=== PATIENT | male | born 1980 | race Caucasian/White ===

== ENCOUNTER 2020-01-01 13:57 | Emergency (ER) | payer MEDICARE ==
[2020-01-01 15:27] LABS: ALT (SGPT) 17 U/L (8-55); AST (SGOT) 17 U/L (5-34); Alkaline Phosphatase 117 U/L (40-110); Anion Gap 11 mmol/L (10-20); BUN (Urea Nitrogen) 13 mg/dL (8.9-20.6); Bilirubin, Total 0.3 mg/dL (0.2-1.2); Calc. Creatinine Clearance 0 mL/min (70-130); Calcium 8.6 mg/dL (7.8-10.44); Carbon Dioxide 25 mmol/L (22-29); Chloride 106 mmol/L (98-107); Estimated GFR-MDRD Greater than 90; Globulin 2.8 g/dL (2.4-3.5); Glucose 87 mg/dL (70-105); Potassium 4.2 mmol/L (3.5-5.1); Protein, Total 6.8 g/dL (6.0-8.3); Sodium 138 mmol/L (136-145)
--- NOTE | 2020-01-01 15:28 | RAD ---
Exam:Left foot 3 views HISTORY: Third and fourth digit infection. Pain. COMPARISON: None FINDINGS: Limited evaluation the second through fourth digit due to persistent flexion. There does ap pear to be diffuse bone demineralization throughout the left foot with more focally mineralization involving the distal aspect of the proximal phalanx of the second digit. Possibility of erosive milian es and demineralization involving the middle and distal phalanx of the fourth digit and fifth digit cannot be excluded. There are mild degenerative changes in the first metatarsal phalangeal joint space Lisfranc alignment is maintained. No fracture. IMPRESSION: Areas of demineralization and possible erosion involving the second, fourth and fifth dig it. Possibility of osteomyelitis cannot be excluded. Consider MRI.
[2020-01-01 15:45] LABS: #Eosinphils 0.1 thou/uL (0.0-0.7); #Lymphocytes 1.8 thou/uL (1.20-3.40); #Monocytes 0.6 thou/uL (0.11-0.59); #Neutrophils 5.8 thou/uL (1.40-6.50); %Basophils 0.1 % (0.0-1.0); %Eosinophils 1.2 % (0.0-10.0); %Lymphocytes 21.9 % (21.0-51.0); %Monocytes 7.2 % (0.0-10.0); %Neutrophils 69.6 % (42.0-75.0); Hemoglobin 15.1 g/dL (14.0-18.0); Mean Corpuscular HGB CONC 33.5 g/dL (32.0-36.0); Mean Corpuscular Hemoglobin 30.6 pg (27.0-31.0); Mean Corpuscular Volume 91.1 fL (78.0-98.0); Mean Platelet Volume 7.9 fL (7.4-10.4); Platelet Count 222 thou/uL (130-400); RBC Distribution Width 12.1 % (11.5-14.5); Red Blood Cell (RBC) Count 4.94 mill/uL (4.70-6.10); White Blood Cell (WBC) Count 8.3 thou/uL (4.8-10.8)
== END 2020-01-01 16:20 | disposition home or self-care (01) ==
LOC: ERS 13:57
DX: L97.529 Non-pressure chronic ulcer of other part of left foot with unspecified severity (principal); I10 Essential (primary) hypertension; Z79.899 Other long term (current) drug therapy
CPT/HCPCS: 36415; 80053; 83605; 85025; 85652; 86140

== ENCOUNTER 2020-03-04 14:40 | Emergency (ER) | payer MEDICARE ==
--- NOTE | 2020-03-04 15:43 | RAD ---
LEFT FOOT 3 VIEWS: HISTORY: Infection. COMPARISON: Foot radiograph 01/01/2020. FINDINGS: Hyperflexion of distal interphalangeal joints of the toes. No acute fracture or malalignment. No er osions or periostitis. IMPRESSION: No acute osseous abnormality. No definite evidence of osteomyelitis. MRI recommended if clinically warranted. POS: [facility]
[2020-03-04 16:20] LABS: #Eosinphils 0.1 thou/uL (0.0-0.7); #Lymphocytes 1.6 thou/uL (1.20-3.40); #Monocytes 0.6 thou/uL (0.11-0.59); #Neutrophils 7.5 thou/uL (1.40-6.50); %Basophils 0.2 % (0.0-1.0); %Eosinophils 0.8 % (0.0-10.0); %Lymphocytes 16.4 % (21.0-51.0); %Monocytes 6.5 % (0.0-10.0); %Neutrophils 76.1 % (42.0-75.0); Hemoglobin 14.7 g/dL (14.0-18.0); Mean Corpuscular HGB CONC 34.6 g/dL (32.0-36.0); Mean Corpuscular Hemoglobin 31.1 pg (27.0-31.0); Mean Corpuscular Volume 89.8 fL (78.0-98.0); Mean Platelet Volume 7.1 fL (7.4-10.4); Platelet Count 206 thou/uL (130-400); RBC Distribution Width 11.8 % (11.5-14.5); Red Blood Cell (RBC) Count 4.74 mill/uL (4.70-6.10); White Blood Cell (WBC) Count 9.9 thou/uL (4.8-10.8)
[2020-03-04 16:33] LABS: Bilirubin Negative (Negative); Blood, Urine 1+ (Negative); Clarity Clear (Clear); Glucose, Urine (Dipstick) Normal (Negative); Ketone, Urine Negative (Negative); Leukocyte 500 Leu/uL (Negative); Mucous/LPF 1+ LPF (<2+); Nitrite Negative (Negative); Protein, Urine (Dipstick) 100 mg/dL (Neg-Trace); RBC/HPF 21-50 HPF (0-3); Specific Gravity, Urine 1.025 (1.002-1.036); Squamous Epithelial 0-3 HPF (0-3); Urobilinogen Normal mg/dL (Less than 2)
[2020-03-04 16:48] LABS: Bacteria/HPF Rare-Few HPF (None Seen)
[2020-03-04 16:49] LABS: Sperm/HPF Rare HPF (None Seen)
[2020-03-04 16:53] LABS: ALT (SGPT) 14 U/L (8-55); AST (SGOT) 11 U/L (5-34); Albumin 3.9 g/dL (3.5-5.0); Alkaline Phosphatase 129 U/L (40-110); Anion Gap 13 mmol/L (10-20); BUN (Urea Nitrogen) 9 mg/dL (8.9-20.6); Bilirubin, Total 0.3 mg/dL (0.2-1.2); Calc. Creatinine Clearance 0 mL/min (70-130); Calcium 8.4 mg/dL (7.8-10.44); Carbon Dioxide 26 mmol/L (22-29); Chloride 105 mmol/L (98-107); Globulin 2.8 g/dL (2.4-3.5); Glucose 82 mg/dL (70-105); Potassium 3.9 mmol/L (3.5-5.1); Protein, Total 6.7 g/dL (6.0-8.3); Sodium 140 mmol/L (136-145)
== END 2020-03-04 17:26 | disposition home or self-care (01) ==
LOC: ERS 14:40
DX: N39.0 Urinary tract infection, site not specified (principal); L03.032 Cellulitis of left toe; L97.529 Non-pressure chronic ulcer of other part of left foot with unspecified severity; I10 Essential (primary) hypertension; E78.5 Hyperlipidemia, unspecified; Z79.899 Other long term (current) drug therapy
CPT/HCPCS: 36415; 80053; 81001; 81015; 83605; 85025; 85652; 86140; 87040; 87077; 87086

== ENCOUNTER 2020-03-14 14:28 | Emergency (ER) | payer MEDICARE ==
--- NOTE | 2020-03-14 15:02 | RAD ---
EXAM: XR Toe(s) Lt Min 2 View DATE: 03/14/2020 2:45 PM INDICATION: Left third toe wound COMPARISON: Left foot 3 views dated March 04, 2020 FINDING: The toes are held in flexion and slightly limiting image detail. There is diffuse osteopeni a. There is a superficial ulceration along the dorsal aspect of the suspected left third digit. No gross destructive osteolysis is evident to suggest osteomyelitis. There is diffuse soft tissue swelli ng of the left third digit. IMPRESSION:No acute osseous abnormality. Soft tissue swelling of the left third digit.
[2020-03-14 15:34] LABS: #Basophils 0.1 thou/uL (0.0-0.2); #Eosinphils 0.1 thou/uL (0.0-0.7); #Lymphocytes 2.2 thou/uL (1.20-3.40); #Monocytes 0.6 thou/uL (0.11-0.59); #Neutrophils 5.9 thou/uL (1.40-6.50); %Basophils 0.6 % (0.0-1.0); %Eosinophils 1.6 % (0.0-10.0); %Lymphocytes 24.7 % (21.0-51.0); %Monocytes 6.7 % (0.0-10.0); %Neutrophils 66.4 % (42.0-75.0); Hemoglobin 15.4 g/dL (14.0-18.0); Mean Corpuscular HGB CONC 33.6 g/dL (32.0-36.0); Mean Corpuscular Hemoglobin 30.5 pg (27.0-31.0); Mean Corpuscular Volume 90.8 fL (78.0-98.0); Mean Platelet Volume 7.7 fL (7.4-10.4); Platelet Count 275 thou/uL (130-400); Red Blood Cell (RBC) Count 5.05 mill/uL (4.70-6.10); White Blood Cell (WBC) Count 8.8 thou/uL (4.8-10.8)
[2020-03-14 16:30] LABS: ALT (SGPT) 13 U/L (8-55); AST (SGOT) 12 U/L (5-34); Albumin 4.1 g/dL (3.5-5.0); Alkaline Phosphatase 123 U/L (40-110); Anion Gap 19 mmol/L (10-20); BUN (Urea Nitrogen) 14 mg/dL (8.9-20.6); Bilirubin, Total 0.3 mg/dL (0.2-1.2); Calc. Creatinine Clearance 0 mL/min (70-130); Calcium 8.4 mg/dL (7.8-10.44); Carbon Dioxide 21 mmol/L (22-29); Chloride 105 mmol/L (98-107); Glucose 84 mg/dL (70-105); Potassium 3.7 mmol/L (3.5-5.1); Protein, Total 7.1 g/dL (6.0-8.3); Sodium 141 mmol/L (136-145)
== END 2020-03-14 16:37 | disposition home or self-care (01) ==
LOC: ERS 14:28
DX: L03.116 Cellulitis of left lower limb (principal); I10 Essential (primary) hypertension; E78.5 Hyperlipidemia, unspecified; Z79.899 Other long term (current) drug therapy
CPT/HCPCS: 36415; 80053; 85025; 87070; 87205

== ENCOUNTER 2020-07-11 15:30 | Emergency (ER) | payer MEDICARE ==
[2020-07-11 16:44] LABS: #Basophils 0.1 thou/uL (0.0-0.2); #Lymphocytes 1.4 thou/uL (1.20-3.40); #Monocytes 0.8 thou/uL (0.11-0.59); #Neutrophils 5.5 thou/uL (1.40-6.50); %Basophils 1.3 % (0.0-1.0); %Eosinophils 0.5 % (0.0-10.0); %Lymphocytes 18.2 % (21.0-51.0); %Monocytes 10.2 % (0.0-10.0); %Neutrophils 69.7 % (42.0-75.0); Mean Corpuscular HGB CONC 33.6 g/dL (32.0-36.0); Mean Corpuscular Hemoglobin 29.8 pg (27.0-31.0); Mean Corpuscular Volume 88.8 fL (78.0-98.0); Platelet Count 262 thou/uL (130-400); RBC Distribution Width 11.9 % (11.5-14.5); Red Blood Cell (RBC) Count 5.04 mill/uL (4.70-6.10); White Blood Cell (WBC) Count 7.9 thou/uL (4.8-10.8)
[2020-07-11 17:11] LABS: ALT (SGPT) 17 U/L (8-55); AST (SGOT) 15 U/L (5-34); Alkaline Phosphatase 97 U/L (40-110); Anion Gap 21 mmol/L (10-20); BUN (Urea Nitrogen) 8 mg/dL (8.9-20.6); Bilirubin, Total 0.4 mg/dL (0.2-1.2); Calc. Creatinine Clearance 0 mL/min (70-130); Calcium 9.3 mg/dL (7.8-10.44); Carbon Dioxide 16 mmol/L (22-29); Chloride 106 mmol/L (98-107); Globulin 3.2 g/dL (2.4-3.5); Glucose 79 mg/dL (70-105); Potassium 3.1 mmol/L (3.5-5.1); Protein, Total 7.2 g/dL (6.0-8.3); Sodium 140 mmol/L (136-145)
[2020-07-11 17:47] LABS: Bacteria/HPF 4+ HPF (None Seen); Bilirubin Negative (Negative); Blood, Urine 1+ (Negative); Clarity Turbid (Clear); Glucose, Urine (Dipstick) Normal (Negative); Ketone, Urine Greater than 150 mg/dL (Negative); Leukocyte 500 Leu/uL (Negative); Nitrite 2+ (Negative); Protein, Urine (Dipstick) 100 mg/dL (Neg-Trace); WBC/HPF Greater than 50 HPF (0-3)
[2020-07-11] MEDS ORDERED: Promethazine HCl 25 MG/ML VIAL ONE (20:03)
== END 2020-07-11 20:45 | disposition home or self-care (01) ==
LOC: ERS 15:30
DX: N39.0 Urinary tract infection, site not specified (principal); I10 Essential (primary) hypertension; Z79.899 Other long term (current) drug therapy
CPT/HCPCS: 36415; 74022; 80053; 81003; 81015; 85025; 96372; J2550

== ENCOUNTER 2020-07-12 03:32 | Emergency (ER) | payer MEDICARE ==
[2020-07-12] MEDS ORDERED: Amoxicillin/Potassium Clav 875 MG TAB ONE (04:33)
[2020-07-12] MEDS ORDERED: Ondansetron ODT 8 MG TAB ONE (04:33)
[2020-07-12] MEDS ORDERED: Morphine 4 MG/ML VIAL ONE ×2 (05:14→05:16)
[2020-07-12] MEDS ORDERED: Lidocaine Viscous Sol 2% 15 ml UD Cup ONE (06:49)
[2020-07-12] MEDS ORDERED: Mag-Al 1200 mg/1200 mg/30 ML UDCUP ONE (06:49)
== END 2020-07-12 06:53 | disposition home or self-care (01) ==
LOC: ERS 03:32
DX: N39.0 Urinary tract infection, site not specified (principal); N21.0 Calculus in bladder; N20.0 Calculus of kidney; R10.13 Epigastric pain; R11.10 Vomiting, unspecified; I10 Essential (primary) hypertension; E78.5 Hyperlipidemia, unspecified
CPT/HCPCS: 74176; 96372; J2270; Q0162